=== PATIENT | female | born 1945 | race Caucasian/White ===

== ENCOUNTER → 2017-07-09 15:17 | Outpatient (CLI) | payer OTHER, SELFPAY ==
[2017-07-11 19:17] LABS: Fecal Immunochemical Test NOT DETECTED
== END ==
PROVIDERS: Family Provider Family Medicine; PCP Family Medicine; Visit Provider Family Medicine
DX: Z12.11 Encounter for screening for malignant neoplasm of colon (principal)
CPT/HCPCS: 82274

== ENCOUNTER → 2017-08-19 11:28 | Outpatient (CLI) | payer OTHER, SELFPAY ==
[2017-08-19 12:23] LABS: Add Manual Diff / Slide Review NO; Basophils Percent Auto 1.3 % (0-2); Eosinophils Percent Auto 5.5 % (2-4); Hematocrit 45.6 % (36-46); Hemoglobin 15.2 g/dL (12.0-16.0); Lymphocytes Percent Auto 21.1 % (25-40); Mean Corpuscular HGB Conc 33.4 % (30-36); Mean Corpuscular Hemoglobin 29.8 PG (26-34); Mean Corpuscular Volume 89.3 fL (80-100); Monocytes Percent Auto 7.4 % (3-14); Neutrophils Absolute Auto 5500 /uL (3000-5900); Neutrophils Percent Auto 64.7 % (50-75); Platelet Count 324 X10^3/uL (150-400); Red Cell Distribution Width 15.1 % (11.6-14.8); White Blood Cell Count 8.5 X10^3/uL (4.5-11.0)
[2017-08-19 12:51] LABS: Alanine Aminotransferase 24 IU/L (9-52); Albumin Globulin Ratio 1.3 (1.0-2.8); Alkaline Phosphatase 86 U/L (38-126); Aspartate Aminotransferase 22 IU/L (14-36); BUN Creatinine Ratio 27.1 (6-22); Bilirubin Total 1.2 mg/dL (0.2-1.3); Blood Urea Nitrogen 19 mg/dL (7-17); Calcium 9.6 mg/dL (8.4-10.2); Carbon Dioxide 32 mmol/L (22-32); Chloride 102 mmol/L (98-107); Estimated Glomerular Filt Rate > 60.0 mL/min (>60); Glucose 92 mg/dL (80-110); HEMOLYSIS < 15 (0-50); Lactate Dehydrogenase 425 U/L (313-618); Potassium 4.4 mmol/L (3.4-5.1); Sodium 143 mmol/L (137-145)
== END ==
PROVIDERS: Family Provider Family Medicine; PCP Family Medicine; Visit Provider Nurse Practitioner Gerontology
DX: C82.90 Follicular lymphoma, unspecified, unspecified site (principal)
CPT/HCPCS: 36415; 80053; 83615; 85025

== ENCOUNTER → 2017-08-22 09:12 | Oncology outpatient (ONC) | payer OTHER, SELFPAY ==
--- NOTE | 2017-08-22 09:19 | P.PNONC_ITS ---
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 She carries a diagnosis of follicular lymphoma intermediate grade, stage I which was found in a left breast mass. Reassuringly no clinical signs or symptoms on exam today to suggest disease recurrence. Additionally CBC and CMP are unremarkable. LDH is within normal limits. As per Dr. Claudio's notes patient is agreeable for a repeat bone marrow biopsy. She will call to schedule this after she returns from a 3 month stay in [place]. I did review red flags with her including fevers, night sweats, change in appetite, change in bowel habits, unexplained weight loss, fatigue. 08/22/17 09:42 - Time Spent with Patient 35 mins PN -Subjective Interval history: The patient is a 71 year old Female who is being seen in the clinic 08/22/2017. She carries a diagnosis of follicular lymphoma intermediate grade, stage I found in a left breast mass. Patient completed her clinical staging workup which included PET CT scan and bone marrow biopsy. Reassuringly the workup as detailed below without evidence of distant disease outside of her primary breast lesion. Flow cytometry did identify 3% kappa restricted B cells from bone marrow aspirate. In review of Dr Tello notes he discussed with the patient possible repeat bone marrow biopsy in 6 months to 1 year to follow-up. Clinically patient offers no complaints today. Specifically no night sweats. No recent illnesses or infections. No change in appetite, no unexplained weight loss. No early satiety. No change with bladder or bowel habits. Activity tolerance remains unchanged as well. No new pain. No new lumps or bumps. Patient will be traveling to [place] this September for 3 months with family. Past Medical History The patient's past medical history is significant for: 1) Follicular lymphoma Clinical presentation: -Asymptomatic. Diagnosis: -01/23/2017. Left breast biopsy. Pathology reporting nodular atypical lymphoid infiltrate with the following IHC pattern: Positive for CD20 and BCL- 2. Ki-67 was 20%. Atypical lymphocytic nodules with 10-15 centroblast/hpf. Clinical staging workup, baseline: -06/02/2014. CT of the chest. Indication elevated d-dimer and atypical chest pain. No evidence of PE. No evidence of lymphoma. -11/30/2014. CT abdomen and pelvis with contrast. No evidence of lymphoma. Spleen normal in size. Indeterminant findings: Right Lung nodule measuring 4 mm unchanged since 2009. Left adnexal mass measuring [address] Diaz, pelvic ultrasound 11/17/2015 ultrasound. -01/07/2017. Bilateral screening mammogram. Left breast 12 mm oval density at 12:00 oclock. -01/17/2017. Diagnostic mammogram with ultrasound. Persistent 11 mm lesion seen on mammogram however not identified on ultrasound. - 02/21/2017. PET/CT no abnormal martinez uptake seen. Nonspecific uptake involving the right rectus capitis an inferior oblique musculature of the posterior neck base of skull SUV of 5.3. No mass seen. Left breast without measurable SUV uptake. -02/11/2017. Bone marrow biopsy with aspirate. Normal cellular marrow at 30-40 %. There interstitial lymphoid aggregate predominantly T-cell favor reactive. No definitive evidence for marrow involvement by B-cell lymphoma. Mild increase in reticulin fibrosis. No ringed sideroblasts. Flow cytometry identifying a small Restricted B-cell population representing 3% of the B cells and 0.2% a total leukocytes. Favored to represent a normal subset of the maturing B cell progenitors. Prognosis: Stage (Laguno classification): 1 (single extranodal lesion without martinez involvement) FLIPI Score: 1 (age > 65). Low risk group with 5 and 10 year survival pre- rituximab at 91 and 71% respectively. Overall survival at 58 months with rituximab therapy at 98%. Median progression free survival at 84%. Grade: Grade 2 (reported 10-15% centroblasts/hpf) Treatment recommendations: -Local radiation followed by surveillance. Anticipated 10 year overall survival rates at 60-80% with a median overall survival at 19 years. Results - Imaging Additional studies: Procedures Closure of skin and subcutaneous tissue of other sites (12/29/09) Home Medications and Allergies Home Medications Medication Instructions Recorded Confirmed Type ASPIRIN (#ASPIRIN) 162 mg PO QDAY #0 01/09/11 History CA PANTOTHENATE/FOLIC ACID/VIT 1 tab PO QDAY #0 01/09/11 History (MULTIVITAMIN) furosemide 80 mg PO QDAY #90 tab 01/07/17 Rx losartan [Cozaar] 25 mg PO QDAY #90 tab 01/14/17 Rx potassium chloride 20 meq PO QDAY #90 tab 01/27/17 Rx [CURCUMIN] Q DAY #0 03/04/17 History duloxetine [Cymbalta] 30 mg PO BID #90 cap 06/16/17 Rx Allergies Allergy/AdvReac Type Severity Reaction Status Date / Time SHAILESH Inhibitors Allergy Mild COUGH Unverified 05/21/17 13:01 codeine Allergy Mild VOMIT Unverified 05/21/17 13:01 hydrochlorothiazide Allergy Mild LOW Unverified 05/21/17 13:01 POTASSIUM hydrocodone Allergy Mild VOMIT Unverified 05/21/17 13:01 Sulfa (Sulfonamide Allergy Mild RASH Unverified 05/21/17 13:01 Antibiotics) Exam Narrative: non toxic appearing. - Constitutional positive no acute distress, positive obese - Routine HEENT Exam Head: Present: normocephalic Eye: Present: conjunctivae pink. Absent: conjunctival icterus, scleral injection ENT: Present: mucous membranes moist, oropharynx clear - Routine Neck Exam Present: supple. Absent: lymphadenopathy - Routine Chest/Breast/Axilla Exam Chest wall exam standard: Absent: tenderness, mass Breast: Absent: tenderness, mass, swelling Axillae: Absent: lymphadenopathy, mass, tenderness - Routine Respiratory Exam Present: Clear to auscultation bilaterally - Routine Cardiovascular Exam Present: RRR, S1, S2. Absent: murmur, gallop, rubs - Routine Abdominal Exam Present: soft, normoactive bowel sounds. Absent: tenderness, distended, organomegaly - Routine Extremities Exam Present: edema. Absent: calf tenderness Comments: trace pretibial edema, bilateral, symmetric - Routine Skin Exam Present: intact, normal turgor. Absent: petechiae - Routine Neurological Exam Present: alert, oriented X3
[2017-08-22 09:27] VITALS: BP 140/79; PULSE 74; RESP 18; TEMP 36.5; O2SAT 96
== END ==
PROVIDERS: Family Provider Family Medicine; PCP Family Medicine; Visit Provider Nurse Practitioner Gerontology
DX: C82.00 Follicular lymphoma grade I, unspecified site (principal)
CPT/HCPCS: 99214

== ENCOUNTER → 2018-07-22 15:03 | Outpatient (CLI) | payer OTHER, SELFPAY ==
--- NOTE | 2018-07-22 15:07 | DI.US.S_ITS ---
PROCEDURE: US PELVIC COMPLETE INDICATIONS: POST MENOPAUSAL VAGINAL BLEEDING TECHNIQUE: Real-time scanning was performed of the pelvic organs, with image documentation. Additional endovaginal scanning was necessary due to incomplete visualization of the adnexal and endometrial structures by transabdominal scanning. COMPARISON: [facility], US, PELVIC COMPLETE, 11/17/2015, 10:49. [facility], US, PELVIC COMPLETE, 12/19/2014, 11:42. FINDINGS: Transabdominal scanning: Limited scanning through the kidneys shows no hydronephrosis. No pathologic free abdominal or pelvic fluid. Endovaginal scanning: Uterus: Uterus is normal in size at 9.2 x 5.4 x 6.8 cm. The endometrium measures 7.2 mm in combined thickness. There is a 2.7 x 2.2 cm fibroid in the posterior mid uterine wall. Multiple calcified nodules are seen in uterus. Ovaries: Ovaries are not visualized. There is a large cystic structure in pelvis measuring 13.5 x 10.3 x 14.1 cm. IMPRESSION: 1. There is a large cystic mass in pelvis measuring 13.5 x 10.3 x 14.1 cm. Ovaries are not visualized. Differential diagnosis include benign or malignant cystic ovarian neoplasms. CT with contrast is suggested for followup evaluation. 2. There is a uterine fibroid. Multiple calcified nodules in uterus are also likely small fibroids. 3. Endometrium is thickened for a postmenopausal woman. Endometrial neoplasm needs to be excluded. Dictated by: Dana Barnett M.D. on 07/22/2018 at 17:59 Approved by: Dana Barnett M.D. on 07/23/2018 at 9:24
== END ==
PROVIDERS: PCP Family Medicine; Visit Provider Family Medicine
DX: N95.0 Postmenopausal bleeding (principal); N94.89 Other specified conditions associated with female genital organs and menstrual cycle; D25.9 Leiomyoma of uterus, unspecified; R93.89 Abnormal findings on diagnostic imaging of other specified body structures
CPT/HCPCS: 76830; 76856

== ENCOUNTER → 2018-07-23 16:43 | Outpatient (CLI) | payer OTHER, SELFPAY ==
[2018-07-23 18:32] LABS: Cancer Antigen 125 11 U/mL (0-35)
== END ==
PROVIDERS: PCP Family Medicine; Visit Provider Family Medicine
DX: N83.209 Unspecified ovarian cyst, unspecified side (principal)
CPT/HCPCS: 36415; 86304

== ENCOUNTER → 2019-02-15 14:19 | Outpatient (CLI) | payer OTHER, SELFPAY ==
--- NOTE | 2019-03-03 10:56 | PM.CARDMON.1 ---
[employer] Report Referral & Results Date Patient Seen: 02/15/19 Requesting provider: Jer Fregoso Indication: Atrial fibrillation Duration of monitoring (days): 7 Diary information: There was 1 patient diary entry in 1 patient triggered event, both of these were associated with sinus rhythm and ventricular ectopic beats Data: Minimum heart rate identified was 52 beats per minute at 06:24 on 02/17/2019 Maximum heart rate was 125 beats per minute at 16:51 on 02/15/2019 Maximum overall heart rate was 179 beats per minute at 15:25 on 02/21/2019 during a 18 beat run of SVT Less than 1% of identified beats were supraventricular ectopic in origin Approximately 8.6% of identified beats were ventricular ectopic in origin including a 49.2nd run of ventricular trigeminy Patient for runs of SVT the fastest being the 18 beat run at 139 beats per minute the longest lasting 17.1 seconds at a rate of 101 beats per minute, which suggest this was actually more atrial tachycardia than true SVT No atrial fibrillation was identified Impression: Minor dysrhythmias identified as above including fairly frequent PVCs and rare SVT. No atrial fibrillation seen
== END ==
PROVIDERS: PCP Family Medicine; Visit Provider Family Medicine
DX: I48.91 Unspecified atrial fibrillation (principal); I49.9 Cardiac arrhythmia, unspecified
CPT/HCPCS: 0296T; 0298T

== ENCOUNTER → 2019-02-19 16:08 | Outpatient (CLI) | payer OTHER, SELFPAY ==
--- NOTE | 2019-02-19 16:13 | DI.ECHO.S_ITS ---
[facility] +---------+ Hospital +---------+ : : [address] : : : : [id number] : : : : Phone: [phone]+ Echocardiogram Report + + :Name: LILIAN GODDARD Study Date: 02/19/2019 Height: 64 in : :[facility] Weight: 250 lb : : Gender: Female BSA: 2.2 m2 : :: 1945 Age: 73 yrs BP: 116/84 mmHg: :Reason For Study: Arrhythmia : :Ordering Physician: Dr. Randle : :[place] Performed By: Nerissa Johns : :Referring: ASHLEIGH QIU : + + Interpretation Summary Normal left ventricle size with ejection fraction 55-60%. Moderate biatrial enlargement. No significant valvular abnormality. Mildly enlarged ascending aorta and aortic arch. Comparison is made with the echocardiogram of 07/23/2010, both atria size has increased. Procedure: A two-dimensional transthoracic echocardiogram with color flow and Doppler was performed. The study quality was technically adequate. Comparison is made with the echocardiogram of 07/23/2010. The patient was in normal sinus rhythm during the exam. The patient had frequent PVCs during the exam. Left Ventricle: The left ventricle is normal in size. There is normal left ventricular wall thickness. There is no ventricular septal defect visualized. The ejection fraction is estimated to be 55-60%. There are no focal wall motion abnormalities. Diastolic parameters suggest probable normal left ventricular diastolic function and normal filling pressures. Right Ventricle: The right ventricle is normal in size and function. Atria: There is moderate biatrial enlargement. There is no Doppler evidence for an interatrial shunt. Mitral Valve: The mitral valve is normal in structure and function. There is trace mitral regurgitation. Aortic Valve: The aortic valve is trileaflet. The aortic valve opens well. There is mild aortic valve sclerosis. No aortic regurgitation is present. Tricuspid Valve: The tricuspid valve is not well visualized, but is grossly normal. There is a trace or physiologic amount of tricuspid regurgitation. Right ventricular systolic pressure is estimated to be 15 mmHg plus the clinically estimated CVP which cannot be estimated on this exam. Pulmonic Valve: The pulmonic valve is not well visualized. There is a trace or physiologic amount of pulmonic regurgitation. Great Vessels: The aortic root is normal size. The ascending aorta is mildly enlarged. The aortic arch is mildly enlarged. The inferior vena cava was not visualized. Pericardium/ Pleura There is no pericardial effusion. MMode/2D Measurements & Calculations LVIDd: 5.2 cm LVOT diam: 2.2 cm LVIDs: 3.4 cm Ao root diam: 3.2 cm FS: 34.8 % Aortic Jxn: 2.9 cm EPSS: 0.51 cm asc Aorta Diam: 3.5 cm IVSd: 0.87 cm Ao Arch Diam (Prox Trans): 3.6 cm LVPWd: 1.00 cm LV rosa. diameter/BSA (cm/m^2): 2.4 LV sys. diameter/BSA (cm/m^2): 1.6 LA A2 area: 25.5 cm2 RA long axis: 6.7 cm LA A4 area: 24.6 cm2 RA area: 25.1 cm2 LA length (vol): 5.6 cm RA vol: 79.1 ml LA vol: 94.8 ml RA : 36.8 ml/m2 LA vol index: 44.1 ml/m2 RVD1 (basal): 3.7 cm RVD2 (mid): 2.6 cm TAPSE: 2.9 cm Doppler Measurements & Calculations Ao V2 max: 98.2 cm/sec LVOT Max Lul: 83.7 cm/sec Ao V2 mean: 67.8 cm/sec LV V1 max P.8 mmHg Ao max P.9 mmHg LV V1 VTI: 15.6 cm Ao mean P.0 mmHg RHYS(I,D): 3.4 cm2 Ao V2 VTI: 17.5 cm RHYS(V,D): 3.3 cm2 sev ratio: 0.89 RHYS indexed to BSA (cm^2/m^2): 1.6 MV E max lul: 60.4 cm/sec TR max lul: 194.8 cm/sec MV A max lul: 59.3 cm/sec TR max P.2 mmHg MV E/A: 1.0 PA V2 max: 57.4 cm/sec Med Peak E' Lul: 4.5 cm/sec PA V2 mean: 39.9 cm/sec E/E' med: 13.4 PA mean P.70 mmHg Lat Peak E' Lul: 7.0 cm/sec PA Accel Time: 0.07 sec E/E' lat: 8.6 E/e' average: 11.0 MV dec time: 0.16 sec MV P1/2t: 47.4 msec MV P1/2t max lul: 60.3 cm/sec SV(LVOT): 60.4 ml MVA(P1/2t): 4.6 cm2 Electronically signed by: Angel Benson on Reading Physician:02/22/2019 03:02 PM
== END ==
PROVIDERS: PCP Family Medicine; Visit Provider Family Medicine
DX: I49.9 Cardiac arrhythmia, unspecified (principal); I48.91 Unspecified atrial fibrillation; I77.89 Other specified disorders of arteries and arterioles
CPT/HCPCS: 93306

== ENCOUNTER → 2019-11-16 10:16 | Outpatient (CLI) | payer OTHER, SELFPAY ==
[2019-11-16 10:43] LABS: Add Manual Diff / Slide Review NO; Basophils Absolute Auto 100 /uL (0-100); Basophils Percent Auto 1.4 % (0-2); Eosinophils Absolute Auto 500 /uL (0-450); Eosinophils Percent Auto 6.3 % (2-4); Hematocrit 43.1 % (36-46); Hemoglobin 14.7 g/dL (12.0-16.0); Lymphocytes Absolute Auto 2400 /uL (1100-4500); Lymphocytes Percent Auto 30.4 % (25-40); Mean Corpuscular HGB Conc 34.1 % (30-36); Mean Corpuscular Hemoglobin 30.3 PG (26-34); Mean Corpuscular Volume 88.8 fL (80-100); Monocytes Absolute Auto 600 /uL (0-900); Monocytes Percent Auto 7.6 % (3-14); Neutrophils Absolute Auto 4300 /uL (1500-7000); Neutrophils Percent Auto 54.3 % (50-75); Platelet Count 331 X10^3/uL (150-400); Red Blood Cell Count 4.85 X10^6/uL (4.0-5.2); Red Cell Distribution Width 14.2 % (11.6-14.8)
[2019-11-16 11:04] LABS: Alanine Aminotransferase 16 IU/L (<35); Albumin Globulin Ratio 1.3 (1.0-2.8); Alkaline Phosphatase 94 U/L (38-126); Aspartate Aminotransferase 27 IU/L (14-36); BUN Creatinine Ratio 24.7 (6-22); Blood Urea Nitrogen 19 mg/dL (7-17); Carbon Dioxide 30 mmol/L (22-32); Chloride 103 mmol/L (98-107); Cholesterol 163 mg/dL (140-199); Estimated Glomerular Filt Rate > 60.0 mL/min (>60); Globulin 3.2 g/dL (1.7-4.1); Glucose 100 mg/dL (80-110); HDL Cholesterol 46 mg/dL (40-60); HEMOLYSIS < 15 (0-50); LDL Cholesterol Calculated 96 mg/dL (<100); Potassium 4.1 mmol/L (3.4-5.1); Sodium 138 mmol/L (137-145); Total Protein 7.2 g/dL (6.3-8.2); Triglycerides 104 mg/dL (35-150)
[2019-11-16 11:39] LABS: TSH w/ Reflex to FT4 5.15 uIU/mL (0.47-4.68)
[2019-11-16 12:16] LABS: Free T4, Direct Thyroxine 1.01 ng/dL (0.78-2.19)
== END ==
PROVIDERS: PCP Family Medicine; Referring Provider Family Medicine; Visit Provider Family Medicine
DX: I10 Essential (primary) hypertension (principal); Z13.6 Encounter for screening for cardiovascular disorders
CPT/HCPCS: 36415; 80053; 80061; 84439; 84443; 85025

== ENCOUNTER → 2020-12-22 13:40 | Outpatient (CLI) | payer OTHER, SELFPAY ==
[2020-12-22 14:30] LABS: Add Manual Diff / Slide Review NO; Basophils Absolute Auto 100 /uL (0-100); Basophils Percent Auto 0.6 % (0-2); Eosinophils Absolute Auto 200 /uL (0-450); Eosinophils Percent Auto 1.9 % (2-4); Hematocrit 47.3 % (36-46); Hemoglobin 15.8 g/dL (12.0-16.0); Lymphocytes Absolute Auto 1300 /uL (1100-4500); Lymphocytes Percent Auto 12.3 % (25-40); Mean Corpuscular HGB Conc 33.5 % (30-36); Mean Corpuscular Volume 89.5 fL (80-100); Monocytes Absolute Auto 700 /uL (0-900); Monocytes Percent Auto 6.5 % (3-14); Neutrophils Absolute Auto 8500 /uL (1500-7000); Neutrophils Percent Auto 78.7 % (50-75); Platelet Count 354 X10^3/uL (150-400); Red Blood Cell Count 5.28 X10^6/uL (4.0-5.2); Red Cell Distribution Width 14.7 % (11.6-14.8); White Blood Cell Count 10.8 X10^3/uL (4.5-11.0)
[2020-12-22 15:05] LABS: Alanine Aminotransferase 19 IU/L (<35); Albumin 4.3 g/dL (3.5-5.0); Albumin Globulin Ratio 1.4 (1.0-2.8); Alkaline Phosphatase 86 U/L (38-126); Aspartate Aminotransferase 33 IU/L (14-36); BUN Creatinine Ratio 27.7 (6-22); Bilirubin Total 1.1 mg/dL (0.2-1.3); Blood Urea Nitrogen 26 mg/dL (7-17); Calcium 9.7 mg/dL (8.4-10.2); Carbon Dioxide 29 mmol/L (22-32); Chloride 101 mmol/L (98-107); Estimated Glomerular Filt Rate 58.4 mL/min (>60); Glucose 96 mg/dL (80-110); HEMOLYSIS < 15 (0-50); Potassium 4.2 mmol/L (3.4-5.1); Sodium 139 mmol/L (137-145); Total Protein 7.3 g/dL (6.3-8.2)
[2020-12-22 15:32] LABS: TSH w/ Reflex to FT4 2.16 uIU/mL (0.47-4.68)
== END ==
PROVIDERS: PCP Family Medicine; Referring Provider Family Medicine; Visit Provider Family Medicine
DX: C85.99 Non-Hodgkin lymphoma, unspecified, extranodal and solid organ sites (principal); E03.9 Hypothyroidism, unspecified; I10 Essential (primary) hypertension
CPT/HCPCS: 36415; 80053; 84443; 85025

== ENCOUNTER → 2020-12-23 14:40 | Outpatient (CLI) | payer OTHER, SELFPAY ==
[2020-12-23 17:42] LABS: Microalbumi Creatinin Ratio Ur 6.8 ug/mg CR (<30); Microalbumin Urine Random 1.4 mg/dL (0-1.6)
== END ==
PROVIDERS: PCP Family Medicine; Referring Provider Family Medicine; Visit Provider Family Medicine
DX: I10 Essential (primary) hypertension (principal); C85.99 Non-Hodgkin lymphoma, unspecified, extranodal and solid organ sites
CPT/HCPCS: 82043; 82570

== ENCOUNTER → 2022-07-25 15:58 | Outpatient (CLI) | payer OTHER, SELFPAY ==
[2022-07-25 16:19] LABS: Add Manual Diff / Slide Review NO; Basophils Absolute Auto 100 /uL (0-100); Eosinophils Absolute Auto 300 /uL (0-450); Eosinophils Percent Auto 3.9 % (2-4); Hematocrit 46.5 % (36-46); Hemoglobin 15.6 g/dL (12.0-16.0); Lymphocytes Absolute Auto 1600 /uL (1100-4500); Lymphocytes Percent Auto 18.5 % (25-40); Mean Corpuscular HGB Conc 33.5 % (30-36); Mean Corpuscular Hemoglobin 30.4 PG (26-34); Mean Corpuscular Volume 90.8 fL (80-100); Monocytes Absolute Auto 700 /uL (0-900); Monocytes Percent Auto 8.1 % (3-14); Neutrophils Absolute Auto 5900 /uL (1500-7000); Neutrophils Percent Auto 68.5 % (50-75); Platelet Count 279 X10^3/uL (150-400); Red Blood Cell Count 5.13 X10^6/uL (4.0-5.2); Red Cell Distribution Width 15.2 % (11.6-14.8); White Blood Cell Count 8.6 X10^3/uL (4.5-11.0)
[2022-07-25 17:32] LABS: Alanine Aminotransferase 22 IU/L (<35); Albumin 4.1 g/dL (3.5-5.0); Albumin Globulin Ratio 1.1 (1.0-2.8); Alkaline Phosphatase 92 U/L (38-126); Aspartate Aminotransferase 27 IU/L (14-36); BUN Creatinine Ratio 29.9 (6-22); Bilirubin Total 1.6 mg/dL (0.2-1.3); Blood Urea Nitrogen 29 mg/dL (7-17); Calcium 9.1 mg/dL (8.4-10.2); Carbon Dioxide 29 mmol/L (22-32); Chloride 102 mmol/L (98-107); Estimated Glomerular Filt Rate > 60 mL/min (>60); Globulin 3.6 g/dL (1.7-4.1); Glucose 103 mg/dL (80-110); HEMOLYSIS < 15 (0-50); Potassium 4.2 mmol/L (3.4-5.1); Sodium 139 mmol/L (137-145); Total Protein 7.7 g/dL (6.3-8.2)
[2022-07-25 18:02] LABS: TSH w/ Reflex to FT4 3.51 uIU/mL (0.47-4.68)
== END ==
PROVIDERS: PCP Family Medicine; Referring Provider Family Medicine; Visit Provider Family Medicine
DX: E78.5 Hyperlipidemia, unspecified (principal); I10 Essential (primary) hypertension; I48.20 Chronic atrial fibrillation, unspecified
CPT/HCPCS: 36415; 80053; 84443; 85025

== ENCOUNTER → 2023-10-23 15:01 | Outpatient (CLI) | payer OTHER, SELFPAY ==
--- NOTE | 2023-10-23 15:02 | DI.US.S_ITS ---
PROCEDURE: US THYROID INDICATIONS: NODULES TECHNIQUE: Real-time scanning was performed of the thyroid gland, with image documentation. COMPARISON: [facility], US, US THYROID, 05/01/2022, 16:35. FINDINGS: Thyroid: Right lobe measures 4.5 x 1.6 x 1.5 cm. Left lobe measures 3.7 x 2.3 x 1.6 cm. Isthmus is 0.3 cm thick. Echotexture is heterogeneous. Nodule number: 1 Location: Right anterior Size: 1.0 x 0.5 x 0.8 cm. Composition: Solid Echogenicity: Hypoechoic Shape: wider than tall. Margins: Smooth Echogenic foci: None Total points: 4 ACR TI-RADS category: 4 IMPRESSION: Category 4 lesion. Secondary to size, no additional follow-up is recommended. ACR TI-RADS definitions and recommendations: TI-RADS 1: 0 points. FNA not needed. TI-RADS 2: 2 points. FNA not needed. TI-RADS 3: 3 points. * FNA if 2.5 cm or larger, follow up if 1.5 cm or larger (at 1, 3, and 5 years). TI-RADS 4 4-6 points. * FNA if 1.5 cm or larger, follow up if 1 cm or larger (at 1, 2, 3, and 5 years). TI-RADS 5: 7 points or more. * FNA if 1 cm or larger, follow up if 0.5 cm or larger (every year for 5 years). Dictated by: Kaylyn Gusman M.D. on 10/23/2023 at 17:34 Approved by: Kaylyn Gusman M.D. on 10/23/2023 at 17:36
== END ==
LOC: US 15:01
PROVIDERS: PCP Family Medicine; Referring Provider Physician Assistant; Visit Provider Physician Assistant
DX: E04.1 Nontoxic single thyroid nodule (principal)
CPT/HCPCS: 76536

== ENCOUNTER → 2024-06-15 09:33 | Outpatient (CLI) | payer OTHER, SELFPAY ==
--- NOTE | 2024-06-15 09:37 | DI.RAD.S_ITS ---
PROCEDURE: XR KNEE LT 3V INDICATIONS: L knee pain - s/p TKA 20+ years ago TECHNIQUE: 3 views of the knee were acquired. COMPARISON: None. FINDINGS: Bones: There are no osseous abnormalities. Joints: Total knee prostheses is anatomically aligned without loosening. Small effusion appreciated Soft tissues: There is heavy calcification expected location of the medial collateral ligament which could indicate chronic sprain. there is also calcification in region of the quadriceps tendon insertion IMPRESSION: Knee prostheses unremarkable. Small effusion noted Calcification the MCL location which could indicate chronic sprain. please correlate with medial instability Dictated by: Constantin Ward M.D. on 06/16/2024 at 10:02 Approved by: Constantin Ward M.D. on 06/16/2024 at 10:03
== END ==
PROVIDERS: PCP Family Medicine; Referring Provider Internal Medicine Infectious Disease; Visit Provider Physician Assistant
DX: M25.562 Pain in left knee (principal); M25.462 Effusion, left knee; Z96.659 Presence of unspecified artificial knee joint
CPT/HCPCS: 73562

== ENCOUNTER → 2024-08-23 14:01 | Outpatient (CLI) | payer OTHER, SELFPAY ==
[2024-08-23 15:58] LABS: Add Manual Diff / Slide Review NO; Hematocrit 48.2 % (36-46); Hemoglobin 16.2 g/dL (12.0-16.0); Lymphocytes Absolute Auto 1500 /uL (1100-4500); Mean Corpuscular HGB Conc 33.7 % (30-36); Mean Corpuscular Hemoglobin 31.3 PG (26-34); Mean Corpuscular Volume 93.1 fL (80-100); Platelet Count 299 X10^3/uL (150-400)
[2024-08-23 16:10] LABS: Hemoglobin A1C% w Est Avg Glu 5.1 % (4.0-6.0)
[2024-08-23 16:26] LABS: Alanine Aminotransferase 18 IU/L (<35); Albumin 4.2 g/dL (3.5-5.0); Albumin Globulin Ratio 1.4 (1.0-2.8); Alkaline Phosphatase 77 U/L (38-126); Blood Urea Nitrogen 20 mg/dL (7-17); Calcium 9.6 mg/dL (8.4-10.2); Carbon Dioxide 30 mmol/L (22-32); Chloride 102 mmol/L (98-107); Cholesterol 170 mg/dL (140-199); Estimated Glomerular Filt Rate > 60 mL/min (>60); Globulin 3.0 g/dL (1.7-4.1); Glucose 122 mg/dL (70-99); HDL Cholesterol 68 mg/dL (40-60); HEMOLYSIS < 15 (0-50); Potassium 4.3 mmol/L (3.4-5.1); Sodium 141 mmol/L (137-145); Total Protein 7.2 g/dL (6.3-8.2); Triglycerides 85 mg/dL (35-150)
[2024-08-23 18:05] LABS: TSH w/ Reflex to FT4 2.07 uIU/mL (0.47-4.68)
== END ==
PROVIDERS: PCP Family Medicine; Referring Provider Family Medicine; Visit Provider Family Medicine
DX: I48.20 Chronic atrial fibrillation, unspecified (principal); R73.09 Other abnormal glucose; I10 Essential (primary) hypertension
CPT/HCPCS: 36415; 80053; 80061; 83036; 84443; 85025